=== PATIENT | male | born 1985 | race Hispanic/Latino ===

== ENCOUNTER 2017-04-19 20:36 | Emergency (ER) | payer SELFPAY ==
[2017-04-19] MEDS ORDERED: Fentanyl 100 MCG/2 ML VIAL ONE (21:01)
[2017-04-19] MEDS ORDERED: Ondansetron HCl/PF 4 MG/2 ML Vial ONE (21:01)
--- NOTE | 2017-04-19 21:40 | RAD ---
LEFT SHOULDER THREE VIEW 04/19/17 HISTORY: Soccer injury. Evaluate for dislocation. COMPARISON: None. FINDINGS: There is an anterior subcoracoid shoulder dislocation. IMPRESSION: Anterior subcoracoid dislocation. POS: [facility]
--- NOTE | 2017-04-19 21:53 | RAD ---
LEFT SHOULDER THREE VIEW 04/19/17 HISTORY: Post reduction. COMPARISON: Shoulder radiograph same day. FINDINGS: Satisfactory alignment post reduction of the left shoulder. Small Hill-Sachs deformity is suspected . IMPRESSION: Satisfactory alignment post reduction. POS: [facility]
== END 2017-04-19 22:10 | disposition home or self-care (01) ==
LOC: MADERS 20:36
DX: S43.015A Anterior dislocation of left humerus, initial encounter (principal); F17.210 Nicotine dependence, cigarettes, uncomplicated; W18.30XA Fall on same level, unspecified, initial encounter
CPT/HCPCS: 23650; 96374; 96375; J2405; J3010

== ENCOUNTER 2019-01-22 20:40 | Emergency (ER) | payer SELFPAY ==
[2019-01-22] MEDS ORDERED: Lidocaine 1% 20 ML MDV ONE (21:01)
[2019-01-22] MEDS ORDERED: Ondansetron ODT 4 MG TAB ONE (21:01)
[2019-01-22] MEDS ORDERED: Sulfameth/Trimethoprim DS 800-160mg TAB ONE (21:01)
[2019-01-22] MEDS ORDERED: Acetaminophen 500 MG TAB ONE (21:01)
[2019-01-22] MEDS ORDERED: Cephalexin 500 MG CAP ONE (21:35)
== END 2019-01-22 22:04 | disposition home or self-care (01) ==
LOC: MADERS 20:40
DX: L02.416 Cutaneous abscess of left lower limb (principal); L03.116 Cellulitis of left lower limb; F32.9 Major depressive disorder, single episode, unspecified; F17.210 Nicotine dependence, cigarettes, uncomplicated
CPT/HCPCS: 10060; J2001; Q0162